=== PATIENT | male | born 1965 | race Two or more races ===

== ENCOUNTER 2019-11-25 05:50 | Day surgery (SDC) | payer OTHER ==
[~2019-11-25 05:50] MED LIST: GLIMEPIRIDE1 MG; LOSARTAN POTASS50 MG PO; METFORMIN HCL1000 M2 PO
[2019-11-25] MEDS ORDERED: PERCOCET 5-3251 EACH PO (18:25)
[2019-11-25] MEDS ORDERED: NEURONTIN600 M1 PO (18:26)
[2019-11-25] MEDS ORDERED: COLACE100 MG PO (18:26)
== END 2019-11-25 21:48 | disposition home or self-care (01) ==
LOC: CIR.AMB 05:50
DX: K43.0 Incisional hernia with obstruction, without gangrene (principal)